=== PATIENT | male | born 1975 | race Native Hawaiian/Other Pacific Islander ===

== ENCOUNTER 2022-10-29 00:07 | Emergency (ER) | payer OTHER ==
[~2022-10-29] VITALS: Ht 165.1 cm; Wt 99.8 kg
[2022-10-29 00:34] LABS: PLATELET COUNT 387 K/uL (142-355)
[2022-10-29 00:40] LABS: POTASSIUM 3.3 mmol/L (3.6-5.2)
[2022-10-29 00:45] VITALS: BP 167/88; TEMP 98.9
[2022-10-29 00:46] LABS: PARTIAL THROMBOPLASTIN TIME 30.8 SECONDS (23.9-36.7)
== END 2022-10-29 00:45 | disposition short-term general hospital (02) ==
LOC: ED 00:24
PROVIDERS: Family Medicine
DX: I49.01 Ventricular fibrillation (principal); I21.9 Acute myocardial infarction, unspecified; I10 Essential (primary) hypertension; E78.5 Hyperlipidemia, unspecified
CPT/HCPCS: 36415; 80053; 83735; 84484; 85027; 85610; 85730; 93005; 96365; 96366; 96375; 99285; J2405; J3475